=== PATIENT | female | born 1965 | race Caucasian/White ===

== ENCOUNTER 2023-07-22 08:51 | Emergency (ER) | payer BC ==
[~2023-07-22] VITALS: Ht 170.2 cm; Wt 101.0 kg
[2023-07-22 09:37] VITALS: BP 126/72; PULSE 85; RESP 16; O2SAT 97
[2023-07-22 13:09] VITALS: TEMP 97.4
== END 2023-07-22 13:10 | disposition left against medical advice (07) ==
LOC: ER 08:52
DX: R11.2 Nausea with vomiting, unspecified (principal); Z53.21 Procedure and treatment not carried out due to patient leaving prior to being seen by health care provider
CPT/HCPCS: 99281